=== PATIENT | male | born 1960 | race Caucasian/White ===

== ENCOUNTER 2022-05-14 22:35 | Emergency (ER) | payer SELFPAY ==
[2022-05-14] MEDS ORDERED: DIATRIZOATE MEGL/DIATRIZOA SOD 30 ML BTL PO ONE (23:27)
[2022-05-15 00:44] VITALS: BP 133/82
== END 2022-05-15 00:46 | disposition home or self-care (01) ==
LOC: ER 22:44
DX: Z43.1 Encounter for attention to gastrostomy (principal)
CPT/HCPCS: 74018; 99282; Q9963

== ENCOUNTER 2022-12-10 05:22 | Emergency (ER) | payer OTHER ==
[~2022-12-10] VITALS: Ht 182.9 cm; Wt 90.7 kg
[2022-12-10] MEDS ORDERED: SODIUM CHLORIDE FLUSH 10 ML SYR IV PRN (05:45)
[2022-12-10 05:55] LABS: BASOPHILS # (AUTO) 0.1 (0.0-0.1); BASOPHILS % 0.4 % (0.0-1.0); EOSINOPHILS # (AUTO) 0.2 (0.0-0.4); EOSINOPHILS % 1.5 % (0.0-6.0); HEMATOCRIT 45.1 % (38.2-49.6); HEMOGLOBIN 13.7 g/dL (14.0-18.0); LYMPHOCYTES # (AUTO) 2.3 (1.0-3.2); LYMPHOCYTES % 20.7 % (18.0-39.1); MEAN CORPUSCULAR HEMOGLOBIN 30.6 pg (28-32); MEAN CORPUSCULAR HGB CONC 30.4 g/dL (31-35); MEAN CORPUSCULAR VOLUME 100.7 fL (81-99); MONOCYTES # (AUTO) 1.1 (0.2-0.8); MONOCYTES % 9.5 % (4.4-11.3); NEUTROPHILS # (AUTO) 7.6 (2.1-6.9); NEUTROPHILS % 67.6 % (38.7-80.0); PLATELET COUNT 227 x10e3/uL (140-360); RED BLOOD COUNT 4.48 x10e6/uL (4.3-5.7); RED CELL DISTRIBUTION WIDTH 13.4 % (11.7-14.4)
[2022-12-10 06:05] LABS: INR 1.09; PROTHROMBIN TIME 14.3 seconds (11.9-14.5)
[2022-12-10 06:06] LABS: PARTIAL THROMBOPLASTIN TIME 29.6 seconds (23.8-35.5)
[2022-12-10 06:12] LABS: ALBUMIN 3.7 g/dL (3.5-5.0); ALBUMIN/GLOBULIN RATIO 0.9 (0.8-2.0); ANION GAP 14.5 mmol/L (8-16); CREATININE, SERUM 0.89 mg/dL (0.72-1.25); POTASSIUM 4.5 mmol/L (3.5-5.1)
[2022-12-10] MEDS ORDERED: DIATRIZOATE MEGL/DIATRIZOA SOD 30 ML BTL PO ONE (06:32)
== END 2022-12-10 08:24 | disposition home or self-care (01) ==
LOC: ER 05:26
DX: Z43.1 Encounter for attention to gastrostomy (principal); I48.91 Unspecified atrial fibrillation; E78.5 Hyperlipidemia, unspecified; G40.909 Epilepsy, unspecified, not intractable, without status epilepticus; I69.354 Hemiplegia and hemiparesis following cerebral infarction affecting left non-dominant side
CPT/HCPCS: 36415; 43762; 74018; 80053; 85025; 85610; 85730; 99284; Q9963